=== PATIENT | male | born 1995 | race Caucasian/White ===

== ENCOUNTER 2019-09-27 14:11 | Emergency (ER) | payer SELFPAY ==
--- NOTE | 2019-09-27 15:34 | EDM.PDOC ---
ED HPI GENERAL MEDICAL PROBLEM - General Chief Complaint: ENT Problem Stated Complaint: INFECTED TOOTH Time Seen by Provider: 09/27/19 14:43 Source of Information: Reports: Patient History Limitations: Reports: No Limitations - History of Present Illness INITIAL COMMENTS - FREE TEXT/NARRATIVE: Patient is a 24-year-old male who presents with complaints of left upper tooth pain and jaw pain and swelling that began this morning. Patient states that he did have a wisdom tooth the upper left that he states "rotted and crumbled away ". Patient is from [place] and has a dentist there. He does not have a dentist here locally. He denies any fever, chills, nausea, or vomiting associated with this. Left Upper Tooth/Teeth Pain Score (Numeric/FACES): 10 - Related Data Allergies Allergy/AdvReac Type Severity Reaction Status Date / Time Sulfa (Sulfonamide Allergy Rash Verified 09/27/19 14:36 Antibiotics) Home Meds: Home Meds Acetaminophen with Codeine [Tylenol with Codeine #3 Tablet] 1 each PO Q4H PRN # 10 tablet 09/27/19 [Rx] Amoxicillin/Clavulanate K [Augmentin 875-125 MG] 1 tab PO BID 10 Days #20 tablet 09/27/19 [Rx] Past Medical History Musculoskeletal History: Reports: RA Social & Family History - Tobacco Use Smoking Status *Q: Current Every Day Smoker Years of Tobacco use: 4 Packs/Tins Daily: 0.5 - Recreational Drug Use Recreational Drug Use: No ED ROS ENT - Review of Systems Review Of Systems: Comprehensive ROS is negative, except as noted in HPI. ED EXAM, ENT - Physical Exam Exam: See Below Exam Limited By: No Limitations General Appearance: Alert, WD/WN, No Apparent Distress Mouth/Throat: Other (Visible hole to the left upper jaw where his wisdom tooth was at one time. Slight edema and erythema to the surrounding tissues.) Head: Atraumatic, Normocephalic Neck: Normal Inspection, Supple, Non-Tender, Full Range of Motion Respiratory/Chest: No Respiratory Distress Cardiovascular: Normal Peripheral Pulses, Regular Rate, Rhythm, No Edema, No Gallop, No JVD, No Murmur, No Rub Neurological: Alert, Oriented, CN II-XII Intact, Normal Cognition, Normal Gait, Normal Reflexes, No Motor/Sensory Deficits Psychiatric: Normal Affect, Normal Mood Skin: Warm, Dry, Intact, Normal Color, No Rash Course - Vital Signs Last Recorded V/S: Last Vital Signs Temp 98.7 F 09/27/19 14:33 Pulse 73 09/27/19 14:33 Resp 16 09/27/19 14:33 BP 128/80 09/27/19 14:33 Pulse Ox 100 09/27/19 14:33 Departure - Departure Time of Disposition: 15:32 Disposition: Home, Self-Care 01 Condition: Fair Clinical Impression: Dental caries - Discharge Information *PRESCRIPTION DRUG MONITORING PROGRAM REVIEWED*: No *COPY OF PRESCRIPTION DRUG MONITORING REPORT IN PATIENT FREDRICK: No Prescriptions: Acetaminophen with Codeine [Tylenol with Codeine #3 Tablet] 1 each PO Q4H PRN # 10 tablet PRN Reason: Pain Amoxicillin/Clavulanate K [Augmentin 875-125 MG] 1 tab PO BID 10 Days #20 tablet Referrals: PCP,None [Primary Care Provider] - Forms: ED Department Discharge Additional Instructions: You were seen in the emergency department today for left dental pain. You have been started Augmentin. Take this as prescribed. In addition you have been prescribed a prescription for Tylenol #3. I recommend that you use ibuprofen for the pain. For pain not relieved by ibuprofen you may use the Tylenol 3's. Recommend that you call tomorrow morning to get an appointment with a dentist. If you experience any new or worsening symptoms, please not hesitate to return to the emergency department. Sepsis Event Note - Evaluation Sepsis Screening Result: No Definite Risk - Focused Exam Vital Signs: Vital Signs Temp Pulse Resp BP Pulse Ox 09/27/19 14:33 98.7 F 73 16 128/80 100 Date Exam was Performed: 09/27/19 Time Exam was Performed: 15:42
== END 2019-09-27 15:45 | disposition home or self-care (01) ==
LOC: JD.ED 14:11
CPT/HCPCS: 99283

== ENCOUNTER 2019-10-19 18:21 | Emergency (ER) | payer SELFPAY ==
[2019-10-19] MEDS ORDERED: Orphenadrine 100 MG Tab.ER PO STA (20:39)
[2019-10-19] MEDS ORDERED: Ibuprofen 600 MG Tab PO ONE (20:39)
[2019-10-19] MEDS ORDERED: FLU Vacc QS2019-20(6MOS+)/PF 60 MCG/0.5 ML SYRINGE IM ONE (20:45)
--- NOTE | 2019-10-19 20:47 | EDM.PDOC ---
ED HPI GENERAL MEDICAL PROBLEM - General Chief Complaint: Chest Pain Stated Complaint: left side chest pain Time Seen by Provider: 10/19/19 20:20 Source of Information: Reports: Patient History Limitations: Reports: No Limitations - History of Present Illness INITIAL COMMENTS - FREE TEXT/NARRATIVE: Mr. Samson is a very pleasant 24-year-old man with a past medical history significant for possible rheumatoid arthritis - the patient says that he was told that by a provider once, but that he has never had joint pain, and has never received any sort of treatment for RA - who now comes to the ED with a complaint of left-sided chest pain radiating into his left scapular area, since 10 AM. He was lying in bed at the time. He describes the pain as sharp and stinging in character. He has not identified any modifiers. No associated dyspnea, fever, chills, nausea, vomiting, diaphoresis, or lightheadedness. The patient did not take any [id number] or home remedies prior to coming to the ED. The patient states that he has had similar pain over the past 2 years. Normally the pain is only there for about 2 seconds, recurring every few weeks, however, it has become more frequent, recently, to the point that he is now getting it about every other week. Today, however, the pain has been persistent since 10 AM, which is unusual. The patient denies any known injury or strain to his chest or back, however, he acknowledged that he works in the [employer], and that his job is physically demanding. Here in the ED, the patient is found to be hemodynamically stable, afebrile, saturating 99% on room air. The patient does not have a PCP. He did not receive an influenza vaccine this season, but agreed to receive one here today. Left Chest Pain Score (Numeric/FACES): 4 - Related Data Allergies Allergy/AdvReac Type Severity Reaction Status Date / Time Sulfa (Sulfonamide Allergy Rash Verified 10/19/19 18:32 Antibiotics) Home Meds: Home Meds Orphenadrine [Norflex] 1 tab PO Q12H PRN #14 tab.er 10/19/19 [Rx] Past Medical History Musculoskeletal History: Reports: RA (possible, but unlikely) Social & Family History - Tobacco Use Smoking Status *Q: Current Every Day Smoker Tobacco Use Within Last Twelve Months: Smokeless Tobacco (occasionally chews), Vaping (nicotine) Years of Tobacco use: 10 Packs/Tins Daily: 0.5 Packs/Tins Daily Comment: Down from 2 ppd - Caffeine Use Caffeine Use: Reports: Soda - Alcohol Use Alcohol Use History: Yes Alcohol Use Frequency: Socially - Recreational Drug Use Recreational Drug Use: Yes Drug Use in Last 12 Months: Yes Recreational Drug Type: Reports: Marijuana/Hashish (last smoked 2018) - Living Situation & Occupation 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 ED EXAM, GENERAL - Physical Exam Exam: See Below Exam Limited By: No Limitations General Appearance: Alert, WD/WN, No Apparent Distress Eye Exam: Bilateral Eye: EOMI, Normal Inspection Ears: Normal External Exam, Hearing Grossly Normal Nose: Normal Inspection Throat/Mouth: Normal Inspection, Normal Lips, Normal Voice, No Airway Compromise Head: Atraumatic, Normocephalic Neck: Normal Inspection, Supple, Non-Tender, Full Range of Motion, Other ( Having the patient turn his head far to the left, extending his neck, and cervical compression increased pain in his left pectoralis and left subscapularis muscles. Turning his head to the right or tipping his chin to his chest did not.) Respiratory/Chest: No Respiratory Distress, Lungs Clear, Normal Breath Sounds, No Accessory Muscle Use, Other (Reproducible tenderness to palpation of his left pectoralis muscle. Pain was not induced with having the patient presses hands together with his arms outstretched in front of his chest, or having him across his left upper extremity across his chest.). No: Decreased Breath Sounds , Crackles, Rhonchi, Wheezing, Stridor, Prolonged Expiration Cardiovascular: Normal Peripheral Pulses, Regular Rate, Rhythm, No Edema, No Gallop, No JVD, No Murmur, No Rub Peripheral Pulses: 4+: Radial (R), Femoral (L) GI/Abdominal: Normal Bowel Sounds, Soft, Non-Tender, No Organomegaly, No Distention, No Abnormal Bruit, No Mass (Male) Exam: Deferred Rectal (Males) Exam: Deferred Back Exam: Normal Inspection, Full Range of Motion, Other (Reproducible tenderness to the left subscapularis muscle, palpated by having the patient bring his left upper extremity behind his back) Extremities: Normal Inspection, Normal Range of Motion, Non-Tender, No Pedal Edema, Normal Capillary Refill Neurological: Alert, Oriented, Normal Cognition, No Motor/Sensory Deficits Psychiatric: Normal Affect Skin Exam: Warm, Dry, Intact, Normal Color, No Rash Course - Vital Signs Last Recorded V/S: Last Vital Signs Temp 37.0 C 10/19/19 18:29 Pulse 79 10/19/19 18:29 Resp 16 10/19/19 18:29 BP 144/67 H 10/19/19 18:29 Pulse Ox 99 10/19/19 18:29 - Orders/Labs/Meds Meds: Medications Discontinued Medications Generic Name Dose Route Start Last Admin Trade Name Freq PRN Reason Stop Dose Admin Ibuprofen 600 mg 10/19/19 20:39 10/19/19 20:50 Motrin PO 10/19/19 20:40 600 mg ONETIME ONE Administration Influenza Virus Vaccine 1 each 10/19/19 20:40 Pharmacy To Dose - Influenza Vaccine IM 10/19/19 20:41 ONETIME ONE Influenza Virus Vaccine 60 mcg 10/19/19 20:45 10/19/19 20:50 Fluzone Quad [id number] Syringe IM 10/19/19 20:46 Not Given .ONCE ONE Orphenadrine Citrate 100 mg 10/19/19 20:39 10/19/19 20:50 Norflex PO 10/19/19 20:40 100 mg ONETIME STA Administration - Re-Assessments/Exams Free Text/Narrative Re-Assessment/Exam: 10/19/19 20:41 Two-view chest radiograph appears to be grossly normal. The cardiac silhouette is within normal limits. No pulmonary vascular congestion. No pleural effusions. No focal infiltrate. No pneumothorax. Formal read per the Radiologist pending. The patient's left chest pain and left scapular pain are musculoskeletal in that they are reproducible with palpation of the left pectoralis muscle and left subscapularis muscle, respectively. They are also made worse, however, if the patient turns his head far to the left, if he extends his neck, or if I performed cervical compression, but not if he turns his head far to the right or tips his chin to his chest, indicating left cervical radiculopathy as the source. For today's purposes, the patient will be treated with Norflex and ibuprofen, and I will submit a prescription for Norflex. I will also refer him to the clinic so that he can make arrangements to have an outpatient MRI of his cervical spine. The patient will be given an influenza vaccine prior to discharge. Departure - Departure Time of Disposition: 20:42 Disposition: Home, Self-Care 01 Condition: Good Clinical Impression: Left cervical radiculopathy, Musculoskeletal chest pain, Strain of left subscapularis muscle - Discharge Information *PRESCRIPTION DRUG MONITORING PROGRAM REVIEWED*: Not Applicable *COPY OF PRESCRIPTION DRUG MONITORING REPORT IN PATIENT FREDRICK: Not Applicable Prescriptions: Orphenadrine [Norflex] 1 tab PO Q12H PRN #14 tab.er PRN Reason: Muscle Spasm Instructions: Nonspecific Chest Pain, [id number] Referrals: Angelina Cuba PA-C [Physician Leasing Assistant] - Forms: ED Department Discharge Additional Instructions: You were seen in the emergency room for left chest and left shoulder blade area pain, previously intermittent, but constant since this morning. Based on your history and physical exam, your pain is due to spasm of your left pectoralis muscle and left subscapularis muscle, due to irritation from nerves on the left side of your neck, a condition known as cervical radiculopathy. You have been started on the muscle relaxant Norflex, as well as ibuprofen. A prescription for Norflex has been sent to the [facility] located in the [employer] store. Take 1 tablet of Norflex every 12 hours, starting tomorrow morning, 10/20/2019, as prescribed. Continue to take [id number] ibuprofen, 3 tablets (600 mg) every 8 hours, with food. Follow-up with [facility], or any of the providers in the clinic, at the next available appointment, to arrange for an outpatient MRI of your neck. If any other problems, please do not hesitate to return to the ER. Sepsis Event Note - Evaluation Sepsis Screening Result: No Definite Risk - Focused Exam Date Exam was Performed: 10/21/19 Time Exam was Performed: 08:31
--- NOTE | 2019-10-20 07:15 | CR ---
Chest: Two views of the chest were obtained. Comparison: No prior chest imaging. Heart size and mediastinum are normal. Lungs are clear. Bony structures are unremarkable. Impression: 1. Nothing acute is seen on two-view chest x-ray. Diagnostic code #1 This report was dictated in [place] Standard Time
== END 2019-10-19 20:59 | disposition home or self-care (01) ==
LOC: JD.ED 18:21
DX: S46.812A Strain of other muscles, fascia and tendons at shoulder and upper arm level, left arm, initial encounter (principal); R07.89 Other chest pain; M54.12 Radiculopathy, cervical region; F17.210 Nicotine dependence, cigarettes, uncomplicated; Z88.2 Allergy status to sulfonamides; X58.XXXA Exposure to other specified factors, initial encounter
CPT/HCPCS: 71046; 99284; A9270; 99283

== ENCOUNTER 2019-11-23 10:41 | Emergency (ER) | payer SELFPAY ==
--- NOTE | 2019-11-23 11:07 | EDM.PDOC ---
ED HPI GENERAL MEDICAL PROBLEM - General Chief Complaint: ENT Problem Stated Complaint: DENTAL COMPLAINT Time Seen by Provider: 11/23/19 10:58 Source of Information: Reports: Patient History Limitations: Reports: No Limitations - History of Present Illness INITIAL COMMENTS - FREE TEXT/NARRATIVE: Patient is a 24-year-old male who presents with pain to his left wisdom tooth area. States he has had this pain off and on for the last 2 years. He was seen in this emergency department approximately 1 month ago with the same complaint. States pain did resolve after that, however has returned. He states that he is try to get into a dentist, however he has been unable to find one. Denies any fever, chills, nausea, vomiting, or diarrhea. Left Upper Tooth/Teeth Pain Score (Numeric/FACES): 10 - Related Data Allergies Allergy/AdvReac Type Severity Reaction Status Date / Time Sulfa (Sulfonamide Allergy Rash Verified 11/23/19 10:47 Antibiotics) Home Meds: Home Meds . [No Known Home Meds] 11/23/19 [History] Past Medical History HEENT History: Reports: Other (See Below) Other HEENT History: L) widom tooth issues in past. Cardiovascular History: Reports: None Respiratory History: Reports: None Gastrointestinal History: Reports: None Genitourinary History: Reports: None Musculoskeletal History: Reports: RA Neurological History: Reports: None Psychiatric History: Reports: None Endocrine/Metabolic History: Reports: None Hematologic History: Reports: None Immunologic History: Reports: None Oncologic (Cancer) History: Reports: None Dermatologic History: Reports: Psoriasis - Infectious Disease History Infectious Disease History: Reports: None Social & Family History - Tobacco Use Smoking Status *Q: Current Every Day Smoker Years of Tobacco use: 9 Packs/Tins Daily: 0.5 - Caffeine Use Caffeine Use: Reports: Coffee, Energy Drinks, Soda, Tea - Recreational Drug Use Recreational Drug Use: No - Living Situation & Occupation 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 ED EXAM, ENT - Physical Exam Exam: See Below Exam Limited By: No Limitations General Appearance: Alert, WD/WN, No Apparent Distress Mouth/Throat: Normal Oropharynx, Other (Mild erythema to the left posterior wisdom tooth area. No obvious purulence.) Respiratory/Chest: No Respiratory Distress, Lungs Clear, Normal Breath Sounds, No Accessory Muscle Use, Chest Non-Tender Cardiovascular: Normal Peripheral Pulses, Regular Rate, Rhythm, No Edema, No Gallop, No JVD, No Murmur, No Rub Neurological: Alert, Oriented, CN II-XII Intact, Normal Cognition, Normal Gait, Normal Reflexes, No Motor/Sensory Deficits Psychiatric: Normal Affect, Normal Mood Skin: Warm, Dry, Intact, Normal Color, No Rash Course - Vital Signs Last Recorded V/S: Last Vital Signs Temp 98.0 F 11/23/19 10:45 Pulse 72 11/23/19 10:45 Resp 16 11/23/19 10:45 BP 131/99 H 11/23/19 10:45 Pulse Ox 99 11/23/19 10:45 - Re-Assessments/Exams Free Text/Narrative Re-Assessment/Exam: 11/23/19 11:13 Discussed with patient that dental care is necessary in order to correct this ongoing problem. We did call over to [facility] and they would be willing to see him immediately. Patient is in agreement with this plan. He will go to [facility]. Departure - Departure Time of Disposition: 11:05 Disposition: Home, Self-Care 01 Condition: Fair Clinical Impression: Tooth pain - Discharge Information *PRESCRIPTION DRUG MONITORING PROGRAM REVIEWED*: No *COPY OF PRESCRIPTION DRUG MONITORING REPORT IN PATIENT FREDRICK: No Referrals: PCP,None [Primary Care Provider] - Forms: ED Department Discharge Additional Instructions: You were seen in the emergency department today for recurrent left wisdom tooth pain. As we discussed, dental care is required to definitively treat this. We did call over [facility] and they would be able to see you right away. Please go directly to [facility] at [address] [place] [address]. Return to ER as needed. Sepsis Event Note - Evaluation Sepsis Screening Result: No Definite Risk - Focused Exam Vital Signs: Vital Signs Temp Pulse Resp BP Pulse Ox 11/23/19 10:45 98.0 F 72 16 131/99 H 99 Date Exam was Performed: 11/23/19 Time Exam was Performed: 11:07
== END 2019-11-23 11:15 | disposition home or self-care (01) ==
LOC: JD.ED 10:41
DX: K08.89 Other specified disorders of teeth and supporting structures (principal); M06.9 Rheumatoid arthritis, unspecified; F17.210 Nicotine dependence, cigarettes, uncomplicated; Z88.2 Allergy status to sulfonamides
CPT/HCPCS: 99282